=== PATIENT | female | born 1950 | race Caucasian/White ===

== ENCOUNTER → 2017-10-21 | Outpatient (REF) | payer MEDICARE ==
[~2017-10-21] MED LIST: ACYC15OI TP; ALBU8.5H IH; BIOT250012 PO; CALC-852 PO; CETI-169 PO; CETI-184 PO; CHOL200022 PO; CORED LEFT EAR; DICL100G39 TOP; ESTR42.59 VG; ESTROGEN PO; FLUT16SP19 NS; GLUC-198 PO; GLUCOSAMINE; LAN30PT PO; LEV112 PO; LEVO-3 PO; LEVO75TA68 PO; LEVO88TA43 PO; METR-160 PO; MULT1TAB64 PO; OLM20 PO; OLME20TA PO; OMEP40CA48 PO; ONDA8TAB94 PO; PANT40TA65 PO; PNEU0.5D3 IM; PRE5 PO
== END ==
LOC: ZZSENDIN 12:00
PROVIDERS: ATTEND Orthopaedic Surgery
DX: M71.372 Other bursal cyst, left ankle and foot (principal)
CPT/HCPCS: 88305

== ENCOUNTER → 2017-10-24 | Outpatient (REF) | payer MEDICARE | LOC: ZZSENDIN 21:26 | PROVIDERS: ATTEND Internal Medicine | DX: R19.7 Diarrhea, unspecified (principal) | CPT/HCPCS: 82274; 83630; 87045; 87324; 87449 ==

== ENCOUNTER → 2017-11-23 | Outpatient (CLI) | payer MEDICARE ==
[~2017-11-23] MED LIST changes: -OLME20TA PO
== END ==
LOC: LAB 15:31
PROVIDERS: ATTEND Nurse Practitioner Family
DX: R19.7 Diarrhea, unspecified (principal)
CPT/HCPCS: 82274; 87045; 87177; 87324; 87449

== ENCOUNTER → 2017-11-25 | Outpatient (CLI) | payer MEDICARE | LOC: LAB 15:58 | PROVIDERS: ATTEND Internal Medicine | DX: R19.7 Diarrhea, unspecified (principal) | CPT/HCPCS: 36415; 82310; 82374; 82435; 82565; 82947; 84132; 84295; 84520; 87324; 87449 ==

== ENCOUNTER → 2018-07-02 | Outpatient (CLI) | payer MEDICARE ==
[~2018-07-02] MED LIST changes: +CHOL200018 PO; -CHOL200022 PO; +FLU150 PO; +VANC125C3 PO
--- NOTE | 2018-07-02 16:32 | RADIOLOGY IMAGING REPORT ---
FACILITY: [facility] PATIENT NAME: Esther Wright : 1950 MR: [id number] V: [id number] EXAM DATE: ORDERING PHYSICIAN: KATLNI QURESHI TECHNOLOGIST: Location: [facility] [place] Patient: Esther Wright : 1950 Visit/Account:[id number] Date of Sevice: 07/02/2018 Exam type: CHEST PA AND LAT History: Shortness of breath, fall, right-sided rib pain Comparison: None. Findings: There is mild hyperexpansion of the lung loza. There is no evidence of acute infiltrates pleural e ffusions or pulmonary edema. Mild linear stranding the left lung base may represent scarring versus atelectasis. There is no evidence of a pneumothorax or pneumomediastinum. Cardiac silhouette is nor mal. There are postsurgical changes lower cervical spine and upper mid spine. No definite acute rib fracture identified IMPRESSION: 1. Hyperexpansion of the lung loza Mild linear stranding left lung base may represent scarring versus atelectasis No definite acute-appearing rib fractures identified Report Dictated By: Daiana Ma MD at 07/02/2018 4:26 PM Report E-Signed By: Daiana Ma MD at 07/02/2018 4:28 PM WSN:[email or web address]
[2018-07-02 16:41] LABS: PLATELET COUNT, AUTOMATED 343 K/uL (150-450)
== END ==
LOC: LAB 15:57
PROVIDERS: ATTEND Internal Medicine
DX: R91.8 Other nonspecific abnormal finding of lung field (principal); R06.02 Shortness of breath; R06.09 Other forms of dyspnea
CPT/HCPCS: 36415; 71046; 85025

== ENCOUNTER → 2018-07-08 | Outpatient (CLI) | payer MEDICARE | LOC: RESP 02:39 | PROVIDERS: ATTEND Internal Medicine | DX: J44.9 Chronic obstructive pulmonary disease, unspecified (principal) | CPT/HCPCS: 94060; 94726; 94729 ==

== ENCOUNTER → 2018-08-10 | Outpatient (RCR) | payer MEDICARE ==
--- NOTE | 2018-05-14 14:47 | SPEECH INITIAL EVALUATION ---
SPEECH THERAPY ASSESSMENT Physician: Lamin Sanders MD, FACS Clinician: Tea Alvarenga MS, CCC-DESK OPERATOR Type of Assessment: Voice Evaluation Patient: Esther Wright : 1950, 68yrs Evaluation Date: 05-12-18 BACKGROUND The patient is a 68 yr old female with recent changes in vocal quality over the last approx 4weeks. 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 She presents with hoarse/raspy voice. Her primary concern at this time is that she is unable to sing with her anabaptism group and during other social events. 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 She recently began on a pump inhibitor which she reports has helped with reflux. 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 EVALUATION RESULTS: Oral Mechanism Examination WNL Assessment of Respiration Pt believes she is developing asthma No diagnosed pulmonary conditions Maximum Phonation Time: average of 8.3 seconds for sustained vowel production indicating lower than normal glottal efficiency (norm is 15-20 seconds adult female). Vocal quality poor. Assessment of Phonation s/z: .55 indicating no vocal fold pathology Pitch: Pt participated in tasks that included sustain phonation at multiple pitch levels. Pitch variation WNL. Pitch during conversation pt reports is reduced. Vocal Quality: Moderate deficits. . Dominant features that contribute to vocal quality include hoarseness, strain. Pt experiences vocal fatigue following extended periods of talking with decline in vocal quality Vocal quality better in a.m. Voice Handicap Index (VHI): During the evaluation, the patient completed a VHI that is based on a 4pt scale to indicate vocal changes and the effects of these changes on ones life. The VHI is composed of three categories; physical, functional, and emotional. A score of 18 or more reflects a significant impact on quality of life. Results: Physical= 25 Functional=11 Emotional=7 Total score=43. Indicates a moderate voice disorder. Cognition WNL Dysphagia: Denies SUMMARY Mrs. Patti Null presents with a moderate voice disorder with vocal fatigue and overall decreased vocal quality. Functional deficits include detrimental impact on work and social interaction. Based on evaluation, voice therapy is medically necessary. Mrs. Iraheta is an ideal candidate for vocal therapy based on a program for healthy vocal use/function. A home program will be established and trained. Recommendations ST 2wk6, 1wk6 Prognosis: Good Recommendations ST 2wk6, 1wk6 POC Short Term Goals 1. Pt will self report a score of 20 or below on the total score of the Voice Handicap Index to fall within the normal to mild range 2. Pt will demonstrate independence with trained voice home exercise program 3. Pt will demonstrate max phonation time wnl (21seconds) with good vocal quality including reduced hoarseness/strain. [employer] Supervisor Goal Pt will demonstrate functional vocal production and overall quality of voice during conversation at work, home, and in community. Thank you for this referral. Please call [phone] Tea Alvarenga M.S., CCC-DESK OPERATOR; Carol Hernandez, [facility] [place] Signature Date MTDD
[~2018-08-10] MED LIST changes: +FLUT1DIS28 IH
== END ==
LOC: ST 05-12 11:12
PROVIDERS: ATTEND Otolaryngology
DX: R49.8 Other voice and resonance disorders (principal)
CPT/HCPCS: 92524

== ENCOUNTER 2018-09-07 12:30 | Outpatient (RCR) | payer MEDICARE ==
--- NOTE | 2018-08-17 15:33 | SLP PLAN OF CARE ---
SPEECH PATHOLOGY PROGRESS REPORT /10th VISIT Progress Note Date: 08-17-18 Physician: Lamin Sanders MD, FACS Clinician: Tea Alvarenga M.S., [facility]-DIRECTOR OF CLINICAL SERVICES Type of Tx: Voice Patient: Esther Wright : 1950, 68yrs BACKGROUND The patient is a 68 year old female, who noticed changes in vocal quality approximately 4 months ago. At the time of her ST evaluation in April,, she presented with a hoarse/raspy vocal quality. She has attended a total of 10 speech therapy treatments. She has attended most of her scheduled sessions and has remained motivated to participate in treatment. Her primary concern continues to be her ability to sing with her restorationism group and the use of her voice during social events or work endeavors. POC STG 1. Pt will self report a score of 20 or below on the total score of the Voice Handicap Index to fall within the normal to mild range. Progressing. The patient has reported self-perceived improvement of her voice, with decreased rough/hoarse vocal quality. The patient also reports no recent sensations of pain during singing at restorationism and has demonstrated appropriate use of tx strategies to improve vocal quality (e.g., breathing techniques, confidential voice). 2. Pt will demonstrate independence with trained voice home exercise program Progressing. The patient continues to report compliance with home-program and this is supported in treatment with observation of independent use of exercise strategies (e.g., diaphragmatic breathing). The patient reports that using her home-exercise techniques during her weekly singing sessions has decreased pain and other negative side-effects (e.g., raspy voice) she experienced prior to beginning treatment. 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 3. Pt will demonstrate max phonation time wnl (21seconds) with good vocal quality including reduced hoarseness/strain. Progressing. The patient has demonstrated increased success performing vocal glides, with improved vocal quality. Her average phonation time across the most 3 recent tx sessions was 10.6 secs. Improved phonation times are d/t more consistent use of breathing techniques for increased breath support. Recently the patient has focused on producing vowel prolongations, with emphasis placed on the quality and loudness of the production, and instruction to end phonation prior to any pain sensation. The patient has improved these prolongations from an average of 5 secs to 10 secs. LTG Pt will demonstrate functional vocal production and overall quality of voice during conversation at work, home, and in community. Prognosis: Good. Continued compliance reported with home-program. SUMMARY The patient continues to benefit from ST to improve decreased vocal quality. The patient continues to progress toward her goals, demonstrated through objective measures and subjective reports which both support an increased vocal quality vs. beginning treatment. RECOMMENDATIONS Speech Therapy 1wk6 Thank you for referring this patient. Please call [phone] to contact the DIRECTOR OF CLINICAL SERVICES Physician Signature Date MTDD
[~2018-09-07 12:30] MED LIST changes: +ESTR42.5 VA; -METR-160 PO; +METR500T15 PO
== END 2018-09-07 18:00 | disposition home or self-care (01) ==
LOC: ST 12:30
PROVIDERS: ATTEND Otolaryngology
DX: R49.8 Other voice and resonance disorders (principal)

== ENCOUNTER → 2018-11-16 | Outpatient (CLI) | payer MEDICARE ==
--- NOTE | 2018-11-16 12:42 | RADIOLOGY IMAGING REPORT ---
FACILITY: [facility] - [place] PATIENT NAME: Esther Wright : 1950 MR: [id number] V: [id number] EXAM DATE: ORDERING PHYSICIAN: KATLIN QURESHI TECHNOLOGIST: Location: [facility] Patient: Esther Wright : 1950 Visit/Account:[id number] Date of Sevice: 11/16/2018 BONE DENSITY HISTORY: see DX recent FX DEXA Scan left forearm Clinical history: screening. Comparison: Comparison is made to a previous study of 05/01/2015 FOREARM: The bone mineral density (BMD) measured in the ULTRA DISTAL left forearm, where trabecular bone predo minates, correlates with a Z-score of -1.6 and a T-score of -3.4 which is osteoporosis as defined by the World Health Organization. The corresponding risk of fracture in the distal forearm is increased nearly 12 times compared with a young adult reference population. The bone mineral density (BMD) in the radial one third of the forearm, where cortical bone predominat es, correlates with a Z-score of -1.2 and a T-score of -3.0 which is osteoporosis as defined by the W orld Health Organization. The corresponding risk of fracture in the midshaft of the forearm is increa sed 8 times compared with a young adult reference population. Total forearm has a Z score of -2.0 and a T score of -3.8. Osteoporosis. Fracture risk increased 14 times. There is been a decrease in the bone mineral density since the previous examination by -9.9% Impression: 1. Left Forearm: Osteoporosis.. Decrease in the bone mineral density since the previous examinatio n by -9.9% The next DEXA scan of this patient should include the following sites: Left Forearm. FRAX? WHO Fracture Risk Assessment Tool link: <http://www.shef.ac.uk/FRAX/tool.jsp?locationValue=9> PLEASE NOTE: 1) The World Health Organization defines low BMD as follows: T-score Normal > -1 Osteopenia < -1 and > -2.5 Osteoporosis < -2.5 without fractures Established osteoporosis < -2.5 with fractures 2) In general, you may wish to consider: Diagnosis Treatment Follow-up DEXA Normal BMD Prevention 2-3 years Osteopenia Prevention/therapy 1-2 years Osteoporosis Therapy Yearly 3) Fracture risk estimated from the T-score is more accurate for vertebral fractures (often spontane ous) than for hip fractures. Report Dictated By: Angel Niño MD at 11/16/2018 12:24 PM Report E-Signed By: Angel Niño MD at 11/16/2018 12:31 PM WSN:[email or web address]
== END ==
LOC: RAD 01:53
PROVIDERS: ATTEND Internal Medicine
DX: M81.0 Age-related osteoporosis without current pathological fracture (principal)
CPT/HCPCS: 77080

== ENCOUNTER → 2018-11-23 | Outpatient (CLI) | payer MEDICARE ==
--- NOTE | 2018-11-23 14:22 | RADIOLOGY IMAGING REPORT ---
FACILITY: [facility] PATIENT NAME: Esther Wright : 1950 MR: [id number] V: [id number] EXAM DATE: ORDERING PHYSICIAN: JOAQUIN PADILLA TECHNOLOGIST: Location: [facility] Patient: Esther Wright : 1950 Visit/Account:[id number] Date of Sevice: 11/23/2018 EXAMINATION: Pelvis and right hip radiographs HISTORY: Right hip pain COMPARISON: January 15, 2012. November 29, 2014 FINDINGS: Frontal pelvis, frontal right hip and frog-leg lateral right hip radiographs obtained. Bones: Normal. Joint spaces: Unchanged left total hip arthroplasty in near-anatomic alignment. Right hip arthropla sty in near-anatomic alignment is new when compared to prior. 2 mm osseous lucency within the proxim al right femur adjacent to the arthroplasty seen on the frontal views. Suggestion of 3.5 mm osseous lucency surrounding the proximal aspect of the right femoral prosthesis on the frog-leg lateral view. Lucency within the right ischial tuberosity on frontal view measures 1.9 cm and appears new compared to January 15, 2012. Alignment: Normal. Soft tissues: Normal. Other: Interspinous spacer noted in the lower lumbar spine. Multilevel lumbar spine disc space degen eration. IMPRESSION: 1. New right hip arthroplasty in near-anatomic alignment. 2 mm osseous lucency within the proximal right femur adjacent to the prosthesis appears new (this ma y measure up to 3.5 mm based on the frog-leg lateral view). Osseous lucency related to hardware loos ening cannot be excluded. CT could be utilized for further characterization however artifact may limit evaluation of this findi ng by CT. Follow-up radiographs are recommended to evaluate stability over time. 2. 1.9 cm new right ischial tuberosity lucency just inferior to the acetabular cup may represent ost eopenia or alternatively lucency related to particle disease/polyethylene wear. 3. Unchanged left hip arthroplasty in near-anatomic alignment without evidence of loosening. Report Dictated By: Jamir Stuart MD at 11/23/2018 2:10 PM Report E-Signed By: Jamir Stuart MD at 11/23/2018 2:18 PM WSN:[email or web address]
--- NOTE | 2018-11-23 14:25 | RADIOLOGY IMAGING REPORT ---
FACILITY: [facility] PATIENT NAME: Esther Wright : 1950 MR: [id number] V: [id number] EXAM DATE: ORDERING PHYSICIAN: JOAQUIN PADILLA TECHNOLOGIST: Location: [facility] Patient: Esther Wright : 1950 Visit/Account:[id number] Date of Sevice: 11/23/2018 MRI pelvis and right hip Indication: Fall one month ago. Persistent hip pain. Possible fracture. Possible gluteus insertional tear. Comparison: Plain films obtained on same day are reviewed. Technique: Multiplanar, multisequence MRI examination is performed of the pelvis and right hip withou t contrast. Findings: Bilateral total hip arthroplasties are in place causing metal susceptibility artifact. Given the limitations of the artifact, no acute fracture is seen involving the bony pelvis, sacrum or the proximal femora. No focal suspicious marrow edema. There is multilevel degenerative disc disease of the low lumbar spine. The sacroiliac joints appear n ormal. With respect to the musculature, the gluteus medius insertions are normal bilaterally. There is mild atrophy of the gluteus minimus muscles bilaterally. Distally, tendons appear intact. No myotendinous edema or muscle avulsion is identified. No evidence of greater trochanteric bursitis. The common hams tring tendon origins are intact. The iliopsoas insertions appear maintained as well. IMPRESSION: 1. Metal artifact due to bilateral total hip arthroplasties. 2. Given the limitations of artifact, no acute/subacute fracture is seen. 3. Intact gluteal insertions bilaterally. No evidence for avulsion or myotendinous strain. 4. Fatty atrophy of the gluteus minimus muscles bilaterally. Report Dictated By: Morales Martinez at 11/23/2018 2:13 PM Report E-Signed By: Morales Martinez at 11/23/2018 2:21 PM WSN:[email or web address]
== END ==
LOC: MRI 07:10
PROVIDERS: ATTEND Physical Medicine & Rehabilitation
DX: Z96.643 Presence of artificial hip joint, bilateral (principal)

== ENCOUNTER → 2018-11-24 | Outpatient (CLI) | payer MEDICARE | LOC: LAB 09:37 | PROVIDERS: ATTEND Internal Medicine | DX: M81.0 Age-related osteoporosis without current pathological fracture (principal) | CPT/HCPCS: 36415; 82306 ==

== ENCOUNTER → 2018-11-27 | Outpatient (CLI) | payer MEDICARE ==
--- NOTE | 2018-11-27 14:18 | RADIOLOGY IMAGING REPORT ---
FACILITY: [facility] PATIENT NAME: Esther Wright : 1950 MR: [id number] V: [id number] EXAM DATE: ORDERING PHYSICIAN: JOAQUIN PADILLA TECHNOLOGIST: Location: [facility] [place] Patient: Esther Wright : 1950 Visit/Account:[id number] Date of Sevice: 11/27/2018 MR ANKLE LT W/O CON COMPARISON: None. HISTORY: Medial and lateral ankle pain, fall in October 2018 assess for deltoid ligament tear or melony ar dome fracture.. TECHNIQUE: Noncontrast multiplanar MRI of the left ankle utilizing T1 weighted and fluid sensitive s equences. CONTRAST: None FINDINGS: FLUID: Small tibiotalar and subtalar joint effusions. No evidence of bursitis or midfoot effusion. BONES: Mild bone marrow edema in the medial malleolus anteriorly, moderate bone marrow edema in the lateral malleolus anteriorly. No discrete fractures.There is no evidence of a talar osteochondral les ion. There is no evidence of tarsal coalition. LIGAMENTS: Intermediate signal and slight loss of definition of the deep deltoid ligament fibers con sistent with an acute low-grade sprain. Superficial deltoid ligament fibers appear to be intact. The anterior syndesmotic ligament appears thinned near its tibial attachment, suggestive of a partial-thi ckness tear. Posterior syndesmotic ligament and posterior talofibular ligament are intact. Subtle thi nning of the mid and distal anterior talofibular ligament suggesting a low-grade partial-thickness te ar. Visualized Lisfranc ligaments are intact. TENDONS: The Achilles, flexor, extensor, and peroneal tendons are intact. MUSCLES: There is no muscle atrophy or edema. OTHER: The fat within the sinus tarsi is preserved. The tarsal tunnel and plantar fascia are unremar kable. IMPRESSION: 1. Small left tibiotalar and subtalar joint effusions. 2. Bone contusions in the medial and lateral malleolus. 3. Acute low-grade sprain of the deep deltoid ligament fibers. 4. Partial-thickness tears of the anterior syndesmotic and anterior talofibular ligaments. Report Dictated By: Lenny Wilson at 11/27/2018 1:47 PM Report E-Signed By: Lenny Wilson at 11/27/2018 2:13 PM WSN:[email or web address]
== END ==
LOC: MRI 01:28
PROVIDERS: ATTEND Physical Medicine & Rehabilitation
DX: M25.472 Effusion, left ankle (principal); S80.12XA Contusion of left lower leg, initial encounter; S93.422A Sprain of deltoid ligament of left ankle, initial encounter; S93.492A Sprain of other ligament of left ankle, initial encounter

== ENCOUNTER → 2018-12-08 | Outpatient (CLI) | payer MEDICARE ==
--- NOTE | 2018-12-08 17:23 | RADIOLOGY IMAGING REPORT ---
FACILITY: [facility] PATIENT NAME: Esther Wright : 1950 MR: [id number] V: [id number] EXAM DATE: ORDERING PHYSICIAN: BIBI SALAZAR TECHNOLOGIST: Location: [facility] [place] Patient: Esther Wright : 1950 Visit/Account:[id number] Date of Sevice: 12/08/2018 Exam type: US VENOUS LOWER EXT RT History: Right calf pain and swelling, history of PE post surgery and prior history of right leg DVT, fell 3 x 2 weeks Comparison: Findings: The right lower extremity veins were imaged including the right common femoral vein greater saphenous vein superficial femoral vein popliteal vein posterior tibial vein peroneal vein anterior tibial vei n revealing no evidence of intraluminal thrombi the veins were compressible and demonstrated augmenta tion. IMPRESSION: 1. No sonographic evidence DVT involving the right lower extremity veins Report Dictated By: Daiana Ma MD at 12/08/2018 5:17 PM Report E-Signed By: Daiana Ma MD at 12/08/2018 5:18 PM WSN:[email or web address]
== END ==
LOC: US 16:04
PROVIDERS: ATTEND Orthopaedic Surgery
DX: M79.661 Pain in right lower leg (principal); R22.41 Localized swelling, mass and lump, right lower limb

== ENCOUNTER → 2019-01-04 | Outpatient (CLI) | payer MEDICARE ==
[~2019-01-04] MED LIST changes: +BENZ100C4 PO; +CALC500T6 PO; +OSE75 PO; +PENI-24 PO; -VANC125C3 PO; +VANC125C4 PO
== END ==
LOC: LAB 11:37
PROVIDERS: ATTEND Internal Medicine Endocrinology, Diabetes & Metabolism
DX: M81.0 Age-related osteoporosis without current pathological fracture (principal)
CPT/HCPCS: 36415; 82040; 82310; 82374; 82435; 82565; 82947; 83970; 84132; 84165; 84295; 84520

== ENCOUNTER → 2019-02-26 | Outpatient (CLI) | payer MEDICARE | LOC: LAB 09:51 | PROVIDERS: ATTEND Internal Medicine Endocrinology, Diabetes & Metabolism | DX: E89.0 Postprocedural hypothyroidism (principal) | CPT/HCPCS: 36415; 82310; 82374; 82435; 82565; 82947; 84132; 84295; 84443; 84520; 84550 ==